=== PATIENT | male | born 1940 | race Caucasian/White ===

== ENCOUNTER 2022-05-25 10:01 | Emergency (ER) | payer MEDICARE, BC ==
[2022-05-25] MEDS: Albuterol/Ipratropium 3.0-0.5 MG/3 ML Neb Soln NEB ONE (10:25)
[2022-05-25] MEDS: Albuterol/Ipratropium 3.0-0.5 MG/3 ML Neb Soln ONE (11:04)
== END 2022-05-25 11:30 | disposition home or self-care (01) ==
LOC: LB.ED 10:01
DX: J21.9 Acute bronchiolitis, unspecified (principal); Z87.891 Personal history of nicotine dependence
CPT/HCPCS: 36415; 71045; 80053; 85025; 94640; 99285; J7620

== ENCOUNTER 2023-05-12 09:19 | Emergency (ER) | payer MEDICARE, BC ==
[2023-05-12] MEDS: Albuterol/Ipratropium 3.0-0.5 MG/3 ML Neb Soln NEB ONE (09:49)
[2023-05-12 10:08] LABS: BASOPHILS ABSOLUTE AUTO 0.06 K/uL (0.02-0.10); BASOPHILS PERCENT AUTO 0.7 % (0.0-0.5); EOSINOPHILS ABSOLUTE AUTO 0.84 K/uL (0.04-0.40); EOSINOPHILS PERCENT AUTO 9.3 % (1.0-5.0); HEMOGLOBIN 14.3 g/dL (13.0-18.0); LYMPHOCYTES PERCENT AUTO 17.6 % (20.0-40.0); MEAN CORPUSCULAR HGB CONC 33.3 g/dL (31.0-35.0); MEAN CORPUSCULAR VOLUME 93 fL (76-96); MEAN PLATELET VOLUME 9.1 fL (6.0-10.0); MONOCYTES ABSOLUTE AUTO 0.85 K/uL (0.20-0.80); MONOCYTES PERCENT AUTO 9.4 % (3.0-10.0); NEUTROPHILS ABSOLUTE AUTO 5.72 K/uL (2.00-7.50); PLATELET COUNT,PLT 258 K/uL (150-400); RED BLOOD CELL COUNT 4.62 M/uL (4.50-6.50); RED CELL DISTRIBUTION WIDTH 13.2 % (11.0-16.0); WHITE BLOOD CELL COUNT,WBC 9.1 K/uL (4.0-11.0)
[2023-05-12 10:30] LABS: A/G RATIO 1.1 (0.8-2.0); ALBUMIN 3.7 g/dL (3.4-5.0); ANION GAP 12.2 mmol/L (5.0-15.0); BILIRUBIN TOTAL 0.7 mg/dL (0.0-1.0); BUN/CREATININE RATIO 18.8 (6-25); CALCIUM 8.2 mg/dL (8.5-10.1); CARBON DIOXIDE,CO2 27.5 mmol/L (21.0-32.0); CREATININE 0.85 mg/dL (0.70-1.30); EST CRCL DRUG DOSING (CG) 63.72 mL/min; POTASSIUM,K 3.7 mmol/L (3.5-5.1); PROTEIN TOTAL,TP 7.2 g/dL (6.4-8.2)
[2023-05-12] MEDS: methylPREDNISolone Sodium Succinate 125 MG/2 ML SDV IM ONE (10:47)
[2023-05-14] MEDS: methylPREDNISolone Sodium Succinate 125 MG/2 ML SDV ONE (08:07)
== END 2023-05-12 10:50 | disposition home or self-care (01) ==
LOC: LB.ED 09:19
DX: J45.909 Unspecified asthma, uncomplicated (principal); E11.9 Type 2 diabetes mellitus without complications; Z79.84 Long term (current) use of oral hypoglycemic drugs; Z86.19 Personal history of other infectious and parasitic diseases
CPT/HCPCS: 36415; 71045; 80053; 85025; 94640; 96372; 99283; 99285; J2930; J7620

== ENCOUNTER 2023-11-02 12:44 | Emergency (ER) | payer MEDICARE, BC ==
[2023-11-02] MEDS: Albuterol/Ipratropium 3.0-0.5 MG/3 ML Neb Soln NEB PRN (13:00)
[2023-11-02] MEDS ORDERED: Sodium Chloride 0.9% 10 ML Syringe FLUSH PRN (13:03)
[2023-11-02] MEDS: Albuterol 0.083% 2.5 MG/3 ML Neb Soln NEB ONE (13:13)
[2023-11-02 13:47] LABS: BASOPHILS ABSOLUTE AUTO 0.09 K/uL (0.02-0.10); BASOPHILS PERCENT AUTO 1.1 % (0.0-0.5); EOSINOPHILS PERCENT AUTO 13.3 % (1.0-5.0); HEMATOCRIT 43.5 % (40.0-54.0); HEMOGLOBIN 14.8 g/dL (13.0-18.0); LYMPHOCYTES ABSOLUTE AUTO 2.18 K/uL (1.50-4.00); LYMPHOCYTES PERCENT AUTO 26.3 % (20.0-40.0); MEAN CORPUSCULAR HEMOGLOBIN 31.1 pg (27.0-32.0); MEAN CORPUSCULAR VOLUME 91 fL (76-96); MEAN PLATELET VOLUME 9.4 fL (6.0-10.0); MONOCYTES ABSOLUTE AUTO 0.87 K/uL (0.20-0.80); MONOCYTES PERCENT AUTO 10.5 % (3.0-10.0); NEUTROPHILS ABSOLUTE AUTO 4.05 K/uL (2.00-7.50); NEUTROPHILS PERCENT AUTO 48.8 % (45.0-70.0); PLATELET COUNT,PLT 287 K/uL (150-400); RED BLOOD CELL COUNT 4.76 M/uL (4.50-6.50); RED CELL DISTRIBUTION WIDTH 13.1 % (11.0-16.0); WHITE BLOOD CELL COUNT,WBC 8.3 K/uL (4.0-11.0)
[2023-11-02 13:56] LABS: ALBUMIN 3.8 g/dL (3.4-5.0); ANION GAP 9.9 mmol/L (5.0-15.0); BILIRUBIN TOTAL 0.4 mg/dL (0.0-1.0); BUN/CREATININE RATIO 18.5 (6-25); CALCIUM 8.6 mg/dL (8.5-10.1); CARBON DIOXIDE,CO2 29.5 mmol/L (21.0-32.0); CREATININE 0.81 mg/dL (0.70-1.30); EST CRCL DRUG DOSING (CG) 64.54 mL/min; POTASSIUM,K 4.4 mmol/L (3.5-5.1); PROTEIN TOTAL,TP 7.7 g/dL (6.4-8.2)
[2023-11-02] MEDS: methylPREDNISolone Sodium Succinate 40 MG/1 ML SDV IM ONE (14:00)
[2023-11-02] MEDS: methylPREDNISolone Sodium Succinate 40 MG/1 ML SDV IVPUSH ONE (14:00)
[2023-11-02] MEDS: methylPREDNISolone Sodium Succinate 40 MG/1 ML SDV ONE (15:27)
== END 2023-11-02 14:30 | disposition home or self-care (01) ==
LOC: LB.ED 12:44
DX: J45.909 Unspecified asthma, uncomplicated (principal); J44.9 Chronic obstructive pulmonary disease, unspecified; E11.9 Type 2 diabetes mellitus without complications; Z87.891 Personal history of nicotine dependence; Z79.84 Long term (current) use of oral hypoglycemic drugs; Z79.899 Other long term (current) drug therapy
CPT/HCPCS: 36415; 71045; 80053; 85025; 94640; 96374; 99285; J2919; J7620